=== PATIENT | male | born 1975 | race Caucasian/White ===

== ENCOUNTER 2019-04-05 23:19 | Emergency (ER) | payer SELFPAY ==
[~2019-04-05] VITALS: Ht 172.7 cm; Wt 104.3 kg
[2019-04-05 23:40] VITALS: BP_SYST 167
[2019-04-05] MEDS ORDERED: METO-442 PO (23:51)
[2019-04-05] MEDS ORDERED: CAT.2 PO (23:52)
[2019-04-06] MEDS ORDERED: cloNIDine HCL 0.1 MG TABLET PO ONE (01:00)
[2019-04-06] MEDS ORDERED: METOPROLOL TARTRATE 25 MG TABLET PO ONE (01:00)
[2019-04-06 01:58] VITALS: BP_SYST 151
== END 2019-04-06 01:57 | disposition home or self-care (01) ==
LOC: SED 23:19
DX: I10 Essential (primary) hypertension (principal); Z86.03 Personal history of neoplasm of uncertain behavior
CPT/HCPCS: 99283